=== PATIENT | male | born 1960 | race Caucasian/White ===

== ENCOUNTER 2017-01-27 18:37 | Inpatient (IN) | END 2017-01-29 17:00 | disposition home or self-care (01) | DRG 872 | DX: A41.9 Sepsis, unspecified organism (principal); E11.9 Type 2 diabetes mellitus without complications; M10.9 Gout, unspecified; K52.9 Noninfective gastroenteritis and colitis, unspecified; J06.9 Acute upper respiratory infection, unspecified; M76.71 Peroneal tendinitis, right leg ==